=== PATIENT | male | born 1945 | race Caucasian/White ===

== ENCOUNTER → 2019-06-16 08:09 | Outpatient (CLI) | payer MEDICARE, OTHER, SELFPAY ==
--- NOTE | 2019-06-16 | DI.RAD.S_ITS ---
PROCEDURE: FL BARIUM SWALLOW INDICATIONS: Dysphagia, unspecified COMPARISON: [facility], , C-SPINE WITHOUT CONTRAST, 08/24/2017, 8:30. FINDINGS: Function: There is normal esophageal peristalsis. There is severe gastroesophageal reflux. There is normal transit of a calibrated barium tablet through the esophagus into the stomach. Morphology: Air-contrast images demonstrate normal mucosal morphology. No esophageal strictures, extrinsic mass effects, or diverticula. There is a small sliding hiatal herniaLimited images of the stomach demonstrate normal appearance. IMPRESSION: 1. Severe gastroesophageal reflux. 2. Small hiatal hernia. 3. The GE junction appears slightly irregular. An upper endoscopy is suggested for followup. Dictated by: Kori Gao M.D. on 06/16/2019 at 10:07 Approved by: Kori Gao M.D. on 06/16/2019 at 10:11
== END ==
PROVIDERS: PCP Nurse Practitioner Acute Care; Visit Provider Nurse Practitioner Acute Care
DX: R13.10 Dysphagia, unspecified (principal); K21.9 Gastro-esophageal reflux disease without esophagitis; K44.9 Diaphragmatic hernia without obstruction or gangrene
CPT/HCPCS: 74220

== ENCOUNTER → 2019-09-13 07:55 | Outpatient (CLI) | payer MEDICARE, OTHER, SELFPAY ==
[2019-09-13 09:12] LABS: BUN Creatinine Ratio 25.7 (6-22); Blood Urea Nitrogen 18 mg/dL (9-20); Carbon Dioxide 26 mmol/L (22-32); Chloride 107 mmol/L (98-107); Cholesterol 188 mg/dL (140-199); Estimated Glomerular Filt Rate > 60.0 mL/min (>60); Glucose 92 mg/dL (80-110); HDL Cholesterol 62 mg/dL (40-60); HEMOLYSIS < 15 (0-50); LDL Cholesterol Calculated 113 mg/dL (<100); Potassium 3.7 mmol/L (3.4-5.1); Sodium 140 mmol/L (137-145); Triglycerides 64 mg/dL (35-150)
== END ==
PROVIDERS: PCP Nurse Practitioner Acute Care; Referring Provider Internal Medicine; Visit Provider Internal Medicine
DX: Z13.220 Encounter for screening for lipoid disorders (principal); Z13.1 Encounter for screening for diabetes mellitus; E78.5 Hyperlipidemia, unspecified
CPT/HCPCS: 36415; 80048; 80061

== ENCOUNTER → 2019-09-15 10:37 | Outpatient (CLI) | payer MEDICARE, OTHER, SELFPAY ==
--- NOTE | 2019-09-19 18:56 | DI.NM.S_ITS ---
DATE OF SERVICE: 09/15/2019 PROCEDURE PERFORMED: Exercise treadmill stress and rest myocardial perfusion imaging with gating to assess ejection fraction and regional wall motion. ORDERING PROVIDER: Dr. Marjan Mi. INDICATIONS: The patient is a 74-year-old male with risk factors for coronary disease and an abnormal ECG. EXERCISE TREADMILL TESTING: The patient was able to exercise for 7 minutes 29 seconds on a standard Alfredito protocol, suggesting good exercise capacity with an NEVILLE of -13%. He had a normal heart rate response to exercise, achieving a maximum heart rate of 149 bpm (101% of his predicted maximum). He had a mild hypertensive blood pressure response with a resting blood pressure 128/82, increasing to a maximum of 208/110. He had no chest discomfort. His resting ECG is normal. With exercise, he developed isolated PVCs, at times fairly frequent, but without complex ventricular ectopy. The PVCs generally improved with progressive exercise. There were no significant ST-segment shifts to suggest ischemia. In recovery, PVCs returned in a trigeminal pattern, but there were no late repolarization abnormalities to suggest ischemia. At 6 minutes 30 seconds of exercise, at a heart rate of 133 bpm, 25.6 mCi of technetium-99m Myoview was injected and the patient was imaged 20 minutes later using a gated SPECT acquisition protocol. He returned four days later and was reinjected with 25.1 millicuries of technetium-99m Myoview and was imaged 30 minutes later, again using a gated SPECT acquisition protocol. FINDINGS: RAW DATA:: There is fair myocardial tracer uptake although with some evidence for diaphragmatic attenuation. Lung-heart ratio is borderline elevated at 0.42, which can be a sign of pulmonary congestion, but is nonspecific. TID ratio was normal at 0.90. QUANTITATED GATED SPECT:: Post-stress ejection fraction is 65% without any focal wall motion abnormality, and specifically the inferior wall has normal contractility. The resting ejection fraction is 68%. Resting end-diastolic volume is mildly increased at 157 mL. MYOCARDIAL PERFUSION IMAGING:: Post-stress supine images shows a fairly normal myocardial perfusion pattern with mildly reduced tracer activity in the proximal and mid inferior wall in a pattern consistent with diaphragmatic attenuation, supported by its complete resolution on the prone images, which reveal a homogeneous, normal perfusion pattern. The resting images show a similar perfusion pattern without any clear areas of improvement. IMPRESSION: 1. Normal myocardial perfusion study. 2. No evidence for myocardial ischemia or previous myocardial infarction. Mild diaphragmatic attenuation is suggested. 3. Normal left ventricular systolic function with mildly increased left ventricular volumes. A borderline elevated lung-heart ratio suggests the possibility of mild pulmonary congestion, but clinical correlation is recommended. 4. Good exercise capacity without angina or ECG evidence of ischemia, but with frequent PVCs that improve with exercise and a hypertensive blood pressure response to exercise. Pete Diane - ERIC/conchis/zhen doc#: [id number]/job#: [id number] dd: 09/19/2019 16:47:00 dt: 09/19/2019 18:30:00 DICTATING MD/COPIES TO: Jose Doss MD; Marjan Mi MD COPIES MNE: DAVID;
== END ==
PROVIDERS: PCP Nurse Practitioner Acute Care; Referring Provider Internal Medicine; Visit Provider Internal Medicine
DX: R94.31 Abnormal electrocardiogram [ECG] [EKG] (principal)
CPT/HCPCS: 78452; 93017; A9502

== ENCOUNTER → 2019-10-19 15:34 | Outpatient (CLI) | payer MEDICARE, OTHER, SELFPAY ==
[2019-10-19 16:53] LABS: Clostridium Difficile Tox PCR Negative for C. diff
== END ==
PROVIDERS: PCP Nurse Practitioner Acute Care; Referring Provider Internal Medicine; Visit Provider Internal Medicine
DX: R19.5 Other fecal abnormalities (principal)
CPT/HCPCS: 87493

== ENCOUNTER → 2019-11-15 08:01 | Outpatient (CLI) | payer MEDICARE, OTHER, SELFPAY ==
[2019-11-15 09:34] LABS: Add Manual Diff / Slide Review NO; Basophils Absolute Auto 100 /uL (0-100); Basophils Percent Auto 1.2 % (0-2); Eosinophils Absolute Auto 200 /uL (0-450); Hematocrit 44.5 % (41-53); Hemoglobin 15.2 g/dL (13.5-17.5); Lymphocytes Absolute Auto 1500 /uL (1100-4500); Lymphocytes Percent Auto 30.8 % (25-40); Mean Corpuscular HGB Conc 34.1 % (30-36); Mean Corpuscular Hemoglobin 31.8 PG (26-34); Monocytes Absolute Auto 600 /uL (0-900); Monocytes Percent Auto 12.5 % (3-14); Neutrophils Absolute Auto 2600 /uL (1500-7000); Neutrophils Percent Auto 51.5 % (50-75); Platelet Count 270 X10^3/uL (150-400); Red Blood Cell Count 4.78 X10^6/uL (4.5-5.9)
== END ==
PROVIDERS: PCP Internal Medicine; Referring Provider Internal Medicine; Visit Provider Internal Medicine
DX: G70.9 Myoneural disorder, unspecified (principal); R19.5 Other fecal abnormalities
CPT/HCPCS: 36415; 85025

== ENCOUNTER → 2020-08-13 08:43 | Outpatient (CLI) | payer MEDICARE, OTHER, SELFPAY ==
[2020-08-13 10:43] LABS: COVID19 -Nasal RAPID Negative (Negative)
== END ==
PROVIDERS: PCP Internal Medicine; Visit Provider Family Medicine Sleep Medicine
DX: Z20.822 Contact with and (suspected) exposure to COVID-19 (principal)
CPT/HCPCS: 87635; C9803

== ENCOUNTER → 2020-09-24 15:06 | Outpatient (CLI) | payer MEDICARE, OTHER, SELFPAY ==
[2020-09-24 17:46] LABS: COVID19 -Nasal RAPID Negative (Negative)
== END ==
PROVIDERS: PCP Internal Medicine; Visit Provider Physician Assistant
DX: Z01.812 Encounter for preprocedural laboratory examination (principal); Z20.822 Contact with and (suspected) exposure to COVID-19
CPT/HCPCS: 87635; C9803

== ENCOUNTER 2020-09-26 07:23 | Day surgery (SDC) | payer MEDICARE, OTHER, SELFPAY ==
[2020-09-26] VITALS (7 sets, daily range): BP systolic 109–158; BP diastolic 72–91; PULSE 61–82; RESP 10–14; TEMP 36.3–36.8; O2SAT 95–100; BMI 25.7
--- NOTE | 2020-09-26 | PATH_ITS ---
[facility] Accession Number: [id number] . 01 Material submitted: . colon - RANDOM COLON . 02 Diagnosis: Random Colon Biopsies: Colorectal mucosa with increased intraepithelial lymphocytosis. Please see comment. Negative for dysplasia or malignancy. MRV 09/28/2020 1049 Local . 02 Comment: These histologic findings could be consistent with lymphocytic colitis, in the appropriate clinical setting. There is no evidence of dysplasia or malignancy. . This case was also reviewed by Dr. Bustamante, who agrees with the interpretation. . 02 Electronically signed: . Rebeka Elias MD, Pathologist NPI- [id number] . 01 Gross description: . RANDOM COLON: Received in formalin are multiple fragment(s) of nuñez, soft tissue measuring 0.1 x 0.1 x 0.1 cm to 0.2 x 0.2 x 0.2 cm submitted entirely in 1 cassette(s) /DUKE 09/27/2020 1932 Local . 02 Pathologist provided ICD-10: Z12.11 . 02 CPT . 879339 Performed at: 01 [facility] [address] [facility] [place], [place], [place] [id number] MD Ty Lunsford MD Phone: [phone] Performed at: 02 [facility] [address] [place], [place] [id number] MD Ilda Johnson MD Phone: [phone]
[2020-09-26] MEDS: SODIUM CHLORIDE 0.9% 1,000 ML 100 ML IV (08:03)
--- NOTE | 2020-09-26 08:24 | PM.HP.1 ---
History of Present Illness History of Present Illness Date Patient Seen: 09/26/20 Chief complaint: SCREENING COLONOSCOPY W/POSS BX Narrative: Screening and diarrhea Patient History Family & Social History Family History Father Loud snoring Hypertension Heart disease Mother Hypertension Heart disease Dementia Family/Other Hypertension Social History: household members spouse Tobacco & Substance use: Smoking Status Never smoker alcohol intake current alcohol intake frequency 0-2 drinks per day Substance Use Type does not use Meds Home Medications and Allergies Home Medications Medication Instructions Recorded Confirmed Type pantoprazole 40 mg tablet,delayed 40 mg PO DAILY 06/13/20 09/26/20 History release prazosin 2 mg capsule 2 mg PO BEDTIME 06/13/20 09/26/20 History sertraline 100 mg tablet 100 mg PO DAILY 06/13/20 09/26/20 History Allergies Allergy/AdvReac Type Severity Reaction Status Date / Time Sulfa (Sulfonamide Allergy Intermediate ITCHING Verified 09/26/20 08:03 Antibiotics) Penicillins Allergy Unknown Verified 09/26/20 08:03 Exam Vital Signs (past 8 hours): - 09/26/20 07:48 Temperature 97.3 F L Pulse Rate 70 Respiratory Rate 12 Blood Pressure 158/91 H Pulse Oximetry 97 Oxygen Delivery Method Room Air Narrative Exam Narrative: Oropharynx free of lesions Chest clear to auscultation percussion Cardiac exam reveals no S3 or murmur Assessment & Plan Assessment & Plan narrative: History of adenomatous polyps need for follow-up colonoscopy. Risks, benefits, alternatives have been explained.
--- NOTE | 2020-09-26 08:29 | PM.OP.ENDO ---
Operative Date/Time/Diagnoses Date of procedure: 09/26/20 Pre-op diagnosis: See indication Procedure & Clinicians Study performed: Colonoscopy Same procedure as scheduled: Yes Indications: Follow-up history of adenomatous colon polyps. Incidental indication diarrhea Surgeon: Alec Gutierrez Procedure Notes Procedure in detail: After informed consent was obtained the patient was placed in the left lateral decubitus position. The video colonoscope was introduced the rectum slowly advanced to the cecum. On slow withdrawal mucosa was carefully examined. Preparation was good. The scope was removed. The patient tolerated procedure well. Blood loss none Complications none Sedation Total sedation time 12 minutes Versed 5 mg fentanyl 100 micro g IV titration Findings 1. Normal colonoscopy to cecum. Random biopsies taken to rule out microscopic colitis Will be in touch regarding biopsies. Otherwise Mr. Diane should have colonoscopy in 7 years.
[2020-09-26] MEDS: fentaNYL 250 MCG/5 ML INJ IV (08:32)
[2020-09-26] MEDS: MIDAZOLAM 5 MG/5 ML VIAL IV (08:38)
--- NOTE | 2020-09-26 08:59 | SUR.PHASEI ---
0851 Arrived to PACU awake/drowsy, denied pain, declined fluids and warm blanket. Went to sleep, resp even and regular.
--- NOTE | 2020-09-26 09:04 | SUR.PHASEI ---
Confirmed with that patient is to continue his home meds.
--- NOTE | 2020-09-26 09:14 | SUR.PHASEI ---
Pt awoke spontaneously to voices, HOB elevated and juice given. Denies pain
== END 2020-09-26 09:32 | disposition home or self-care (01) ==
PROVIDERS: PCP Internal Medicine; Referring Provider Internal Medicine; Visit Provider Internal Medicine Gastroenterology
PROC: 0DJD8ZZ Inspection of Lower Intestinal Tract, Via Natural or Artificial Opening Endoscopic (ICD-10-PCS; CPT 45378; principal; 2020-09-26 08:30)
DX: Z12.11 Encounter for screening for malignant neoplasm of colon (principal); Z86.010 Personal history of colon polyps; I10 Essential (primary) hypertension; R19.7 Diarrhea, unspecified
CPT/HCPCS: 45380; J2250; J3010

== ENCOUNTER → 2020-10-29 06:37 | Outpatient (CLI) | payer MEDICARE, OTHER, SELFPAY ==
--- NOTE | 2020-10-29 | DI.MRI.S_ITS ---
PROCEDURE: MR HEAD/BRAIN WO CON INDICATIONS: Cerebral infarction, unspecified TECHNIQUE: Non-contrast axial T1 spin echo, axial T2 fast spin echo, sagittal and axial FLAIR, coronal T2 fast spin echo, axial gradient echo, axial diffusion and ADC through the brain. COMPARISON: None. FINDINGS: Image quality: Excellent. CSF spaces: Ventricles appear symmetric in size and shape. Basal cisterns are patent. No extra-axial fluid collections. Brain: No intracranial bleeds or mass effects. There is cerebral volume loss for age. There are periventricular and deep white matter chronic small vessel ischemic changes. Brainstem appears normal. Diffusion-weighted images show no acute ischemic insults. No chronic ischemic insults. Normal intravascular flow voids are present. Skull and face: Calvarial bone marrow is normal in signal. Orbits are normal. Note is made of bilateral lens replacements. Sinuses: Minimal mucosal thickening is seen within the ethmoid air cells, without a significant paranasal sinus abnormality elsewhere. No abnormal fluid is seen within the mastoid air cells. IMPRESSION: No findings of acute or subacute infarction can be seen. No ivana findings of a significant remote infarction can be seen. Note is made of age-appropriate brain parenchymal volume loss and chronic small vessel ischemic changes. Dictated by: Jayro Suarez M.D. on 10/29/2020 at 8:36 Approved by: Jayro Suarez M.D. on 10/29/2020 at 8:38
== END ==
PROVIDERS: PCP Internal Medicine; Referring Provider Internal Medicine; Visit Provider Psychiatry & Neurology Neuromuscular Medicine
DX: I63.9 Cerebral infarction, unspecified (principal); R53.1 Weakness; R20.0 Anesthesia of skin
CPT/HCPCS: 70551

== ENCOUNTER 2021-05-16 17:11 | Emergency (ER) | payer MEDICARE, OTHER, SELFPAY ==
[2021-05-16 17:48] VITALS: BP 156/86; PULSE 58; RESP 18; TEMP 36.4; O2SAT 98; BMI 27.1
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
== END 2021-05-16 20:20 | disposition home or self-care (01) ==
PROVIDERS: Emergency Provider Nurse Practitioner Critical Care Medicine; PCP Internal Medicine; Referring Provider Internal Medicine
DX: G62.9 Polyneuropathy, unspecified (principal)
CPT/HCPCS: 99281

== ENCOUNTER → 2021-06-28 16:02 | Outpatient (CLI) | payer MEDICARE, OTHER, SELFPAY ==
--- NOTE | 2021-06-28 | DI.MRI.S_ITS ---
PROCEDURE: MR THORACIC SPINE WO CON INDICATIONS: Abnormal reflex; WEAKNESS TECHNIQUE: Noncontrast sagittal T1 spine echo and T2 fast spin echo, sagittal STIR, axial T1 and T2 fast spin echo through the thoracic spine. COMPARISON: [facility], MR, MR CERVICAL SPINE WO CON, 06/28/2021, 16:35. [facility], CR, SPINE THORACIC MIN 4VW, 12/03/2009, 15:14. FINDINGS: Image quality: There is susceptibility artifact seen within the midthoracic region on the left. Alignment and Curvature: There is mild levoconvex thoracolumbar scoliotic curvature seen. Bone Marrow: Marrow is of normal overall signal. No acute vertebral body compression fractures. Spinal Cord: Visualized spinal cord is normal in size and signal. Paraspinous Soft Tissues: No paravertebral masses. Note is made of an 18 mm right renal cyst. Miscellaneous: At T1-T2, there is mild loss of disc height seen. Bridging endplate osteophytes are seen. Reactive marrow endplate changes are seen which are hypointense on T1-weighted imaging and hyperintense on T2 weighted imaging, which is most consistent with edema (Modic type I changes). Moderate disc bulge is seen, with mild central canal narrowing and mild mass effect upon the ventral spinal cord. At least moderate bilateral neural foraminal narrowing can be seen. At T9-T10, there is a mild central disc protrusion, with mild central canal narrowing. There is at least moderate bilateral neural foraminal narrowing seen. At T10-T11, there is a mild to moderate central disc protrusion, with mild central canal narrowing. No significant mass effect can be seen upon the ventral spinal cord. There is at least moderate bilateral neural foraminal narrowing seen. At the T11-T12 level, there is moderate disc bulge, which is eccentric to the right. There is moderate right-sided and mild left-sided facet hypertrophy seen. There is moderate right-sided and no significant left-sided neural foraminal narrowing. Mild central canal narrowing is seen. No significant mass effect is seen upon the spinal cord. Milder degenerative changes are seen elsewhere. IMPRESSION: Multiple levels of thoracic spine degenerative change are seen, which are overall worst at T1-T2 and also inferiorly. Dictated by: Jayro Suarez M.D. on 06/28/2021 at 16:45 Approved by: Jayro Suarez M.D. on 06/28/2021 at 16:49
--- NOTE | 2021-06-28 | DI.MRI.S_ITS ---
PROCEDURE: MR CERVICAL SPINE WO CON INDICATIONS: Abnormal reflex; WEAKNESS TECHNIQUE: Noncontrast sagittal T1 spin echo and T2 fast spin echo, sagittal STIR, foraminal oblique sagittal T2 fast spin echo, and axial gradient echo or T2 fast spin echo through the cervical spine. COMPARISON: [facility], NM, NM PET CT FUSION WHOLE BODY, 08/10/2019, 18:05. [facility], MR, MR THORACIC SPINE WO CON, 06/28/2021, 16:35. [facility], MR, C-SPINE WITHOUT CONTRAST, 08/24/2017, 8:30. FINDINGS: Image quality: This examination is limited by involuntary motion artifact. Alignment and Curvature: There is mild grade 1 anterolisthesis seen at the C4-C5 level. Bone Marrow: Marrow demonstrates normal overall signal. Partial erosion is seen of the dens. Abnormal soft tissue can be seen adjacent to the dens. The appearance has progressed compared to 2018. Spinal Cord: Visualized spinal cord has normal size and signal. No cerebellar tonsillar herniation. Paraspinous Soft Tissues: No paravertebral masses. Prevertebral soft tissues are normal in thickness. C2-C3: The disc height is well-preserved. Loss of disc signal is seen at this level. Mild generalized disc bulge is seen. There is mild right-sided and moderate left-sided facet hypertrophy seen. Moderate bilateral neural foraminal narrowing is seen. Mild central canal narrowing is seen. When comparison is made with the prior images, these findings are similar. C3-C4: Mild loss of disc height is seen. Loss of disc signal is seen. At least moderate disc osteophyte complex is seen, which is eccentric to the left. There is prominent left-sided and moderate right-sided facet hypertrophy seen. There is severe left-sided and moderate to severe right-sided neural foraminal narrowing seen. Moderate central canal narrowing is seen. No significant change from the prior. C4-C5: Synn-xi-vnxbpliz loss of disc height and disc signal can be seen. At least moderate disc osteophyte complex is seen, which is eccentric to the left. There is at least moderate right-sided and moderate to prominent left-sided facet hypertrophy seen. Severe bilateral neural foraminal narrowing can be seen. Moderate to severe central canal narrowing is seen. There is associated mass effect upon the ventral spinal cord. No significant change from the prior. C5-C6: Mild loss of disc height is seen. Loss of disc signal is seen. Moderate generalized disc osteophyte complex is seen. There is sdjq-ci-mpqmdict right-sided and moderate to prominent left-sided facet hypertrophy seen. There is moderate to severe left-sided and at least moderate right-sided neural foraminal narrowing seen. Mild central canal narrowing is seen. No significant progression compared to the prior. C6-C7: Mild loss of disc height is seen. Loss of disc signal is seen. Moderate generalized disc osteophyte complex is seen. There is moderate right-sided and moderate to prominent left-sided facet hypertrophy seen. There is moderate to severe bilateral neural foraminal narrowing seen, left worse than right. Mild central canal narrowing is seen. Stable from the prior study. C7-T1: Nxbg-xj-jtodidza loss of disc height and disc signal can be seen. At least moderate disc osteophyte complex is seen. Moderate facet joint hypertrophy is seen. There is moderate to severe left-sided and moderate right-sided neural foraminal narrowing seen. Minimal central canal narrowing is seen. When comparison is made with the prior images, these findings are similar. IMPRESSION: Multiple levels of cervical spine degenerative change are seen, which are not significantly progressed compared to 2018. The degenerative changes are worst at the C4-C5. Dictated by: Jayro Suarez M.D. on 06/28/2021 at 16:37 Approved by: Jayro Suarez M.D. on 06/28/2021 at 16:43
== END ==
PROVIDERS: PCP Internal Medicine; Referring Provider Psychiatry & Neurology Neuromuscular Medicine; Visit Provider Psychiatry & Neurology Neuromuscular Medicine
DX: M47.812 Spondylosis without myelopathy or radiculopathy, cervical region (principal); M47.814 Spondylosis without myelopathy or radiculopathy, thoracic region; R29.2 Abnormal reflex; R53.1 Weakness
CPT/HCPCS: 72141; 72146

== ENCOUNTER 2021-07-06 15:51 | Emergency (ER) | payer MEDICARE, OTHER, SELFPAY ==
[2021-07-06 16:14] VITALS: BP 154/78; PULSE 67; RESP 18; TEMP 36.8; O2SAT 97; BMI 26.4
--- NOTE | 2021-07-06 16:19 | DI.US.S_ITS ---
PROCEDURE: US PERIPH VENOUS LOW EXTREM LT INDICATIONS: BRUISING, SWELLING AFTER MINOR INJURY TECHNIQUE: Real-time imaging, as well as color and pulse Doppler interrogation, were performed of the lower extremity deep veins from the inguinal ligament to the popliteal fossa. COMPARISON: None. FINDINGS: The common femoral, femoral and popliteal veins are normally compressible, and free of intraluminal thrombus. Color and pulse Doppler demonstrate normal phasic intraluminal flow. There is normal augmentation response to distal compression maneuver. There is a fluid collection in the popliteal fossa consistent with a Monk's cyst measuring approximately 3.2 x 0.7 x 3.6 cm. IMPRESSION: 1. No evidence of deep venous thrombosis in the left lower extremity. Dictated by: Ty Ring M.D. on 07/06/2021 at 16:21 Approved by: Ty Ring M.D. on 07/06/2021 at 16:22
--- NOTE | 2021-07-06 17:32 | ED_ITS ---
HPI - Extremity Injury (Lower) General Chief Complaint: Extremity Injury, Lower Stated Complaint: LT ANKLE SWOLLEN/BRUISE FROM BACK OF KNEE TO GROIN Time Seen by Provider: 07/06/21 17:06 Source: patient Mode of arrival: Ambulatory Limitations: no limitations History of Present Illness HPI Narrative: 76-year-old male nonsmoker without significant medical problems presents with his in the chief complaint of some pain and bruising of his left leg with possible injury. He had spoken with his primary care office and was sent here for evaluation of this injury and evaluation for DVT. Patient states that he w as bowling recently and went down in a rather low crouch and felt a pulling, tugging pain in his left buttock. In the aftermath he noticed bruising in his posterior thigh. He has yxln-pw-vijmgmbr pain but nothing significant, and is still able to go about his day. His symptoms are worse when he moves and improves with rest. He denies any numbness, tingling or weakness and he has had no systemic findings otherwise such as fever or chills. Additionally he suffered a superficial injury to his left lateral ankle and has some bruising which is subtle below the lateral malleolus. Related Data Home Medications Medication Instructions Recorded Confirmed pantoprazole 40 mg tablet,delayed 40 mg PO DAILY 06/13/20 09/26/20 release prazosin 2 mg capsule 2 mg PO BEDTIME 06/13/20 09/26/20 sertraline 100 mg tablet 100 mg PO DAILY 06/13/20 09/26/20 Allergies Allergy/AdvReac Type Severity Reaction Status Date / Time Sulfa (Sulfonamide Allergy Intermediate ITCHING Verified 07/06/21 16:14 Antibiotics) Penicillins Allergy Unknown Verified 07/06/21 16:14 Review of Systems Review of Systems Narrative: GENERAL: Denies chills, fatigue, malaise, fever, sweats. HEENT: Denies sinus pain, ear pain, sore throat, difficulty swallowing, dizziness. RESPIRATORY: Denies dyspnea, cough, wheezing, hemoptysis, sputum. CARDIOVASCULAR: Denies chest pain, palpitations, orthopnea, edema, GASTROINTESTINAL: Denies nausea, vomiting, abdominal pain, diarrhea, constipation, melena. : Denies dysuria, frequency, incontinence, hematuria, urinary retention. MUSCULOSKELETAL: See HPI SKIN: Denies rash, skin lesions, or other NEUROLOGIC: Denies weakness, headache, numbness, change in speech, confusion, seizures, incoordination. PSYCHIATRIC: No concerning psychosocial issues. 12 point review of systems is negative except for those stated above Patient History Family History Father Loud snoring Hypertension Heart disease Mother Hypertension Heart disease Dementia Family/Other Hypertension Social History household members: spouse Smoking Status: Never smoker alcohol intake: current Smoking Status: Never smoker alcohol intake frequency: 0-2 drinks per day Substance Use Type: does not use Exam Narrative Exam Narrative: GENERAL: [76] year old patient appears stated age. Well-developed patient, in mild distress. HEAD: Atraumatic. Normocephalic. EYES: Pupils equal round and reactive. Extraocular motions intact. No scleral icterus. No injection or drainage. ENT: Nose without bleeding, purulent drainage. Throat without erythema, tonsillar hypertrophy or exudate. Airway patent. NECK: Trachea midline. Non tender CARDIOVASCULAR: Regular rate and rhythm without murmurs, gallops, or rubs. RESPIRATORY: Clear to auscultation. Breath sounds equal bilaterally. No wheezes, rales, or rhonchi. GASTROINTESTINAL: Abdomen soft, non-tender, nondistended. EXTREMITIES: Patient has mild tenderness to palpation in the left gluteal fold without any significant induration or effusion. He has full strength with flexion at the knee, hamstrings appear intact. There is dark purple ecchymosis consistent with superficial hematoma, likely settling in a dependent fashion in the posterior thigh and also lateral foot. No bony tenderness. Otherwise very reassuring exam BACK: Nontender without deformity or crepitance. No flank tenderness. NEURO: AOx3. SKIN: No rash or erythema of visible areas Initial Vital Signs Initial Vital Signs: Vital Signs Temperature 98.3 F 07/06/21 16:14 Pulse Rate 67 07/06/21 16:14 Respiratory Rate 18 07/06/21 16:14 Blood Pressure 154/78 H 07/06/21 16:14 Pulse Oximetry 97 07/06/21 16:14 Course Orders Ordered: ED Orders 07/06/21 16:19 US perip venous low extrem lt Stat Vital Signs Vital signs: Vital Signs - 8 hr 07/06/21 16:14 Temperature 98.3 F Pulse Rate 67 Respiratory Rate 18 Blood Pressure 154/78 H Pulse Oximetry 97 MDM - Extremity Injury (Lower) Imaging Data US - DVT: Radiologist's Impression: [address] [id number] Ultrasound Report Signed Patient: Pete Diane MR#: [id number] : 1945 Acct:[id number] Age/Sex: 76 / M Date of Service: 07/06/21 Loc: ED Accession Number: [id number] ?? Procedure: US periph venous low extrem lt Ordering Provider: Susannah Rainey D.O. PROCEDURE:? US PERIPH VENOUS LOW EXTREM LT ? INDICATIONS:? BRUISING, SWELLING AFTER MINOR INJURY ? TECHNIQUE:? Real-time imaging, as well as color and pulse Doppler interrogation, were performed of the lower extremity deep veins from the inguinal ligament to the popliteal fossa.? ? COMPARISON:? None. ? FINDINGS:? The common femoral, femoral and popliteal veins are normally compressible, and free of intraluminal thrombus.? Color and pulse Doppler demonstrate normal phasic intraluminal flow.? There is normal augmentation response to distal compression maneuver. ? ? There is a fluid collection in the popliteal fossa consistent with a Monk's cyst measuring approximately 3.2 x 0.7 x 3.6 cm. ? IMPRESSION:? ? 1. No evidence of deep venous thrombosis in the left lower extremity. ? ? Dictated by: Ty Ring M.D. on 07/06/2021 at 16:21 ? ? Approved by: Ty Ring M.D. on 07/06/2021 at 16:22 ? Discharge Plan Departure Patient Disposition: Home Clinical Impression: Hematoma, Left hamstring injury, Monk's cyst of knee Instructions: DI for Monk Cyst, DI for Hematoma (Bruise) Activity Restrictions/Additional Instructions: *You have been diagnosed with [left thigh and ankle hematoma, likely from partial hamstring injury. Ultrasound was very reassuring and there is no evidence of clot, however as we discussed you do have a Monk cyst behind her left knee. *What to do: *Please continue to take your regular medications as directed. [ ] New medication prescriptions sent to your pharmacy: [ ] [ ] New medication written as a paper prescription [ x] No new medications given *Please follow up with your primary care provider in 2-3 days, call for an appointment. Let them know you were seen in the Emergency Department and that we ask that you be seen in follow up. We will electronically transmit a record of today's note if your PCP is in our system *If you do not have a primary care provider please contact the [facility] Resource line at [phone]. They will ask some questions about your medical history and help get you set up with a doctor in the community. *Return to Emergency Department if you should have any new, worsening or concerning symptoms, such as [fever greater than 101 F, shaking chills, worsening pain, persistent vomiting or other bothersome symptoms] Prescriptions: No Action sertraline 100 mg tablet 100 mg PO DAILY 0RF prazosin 2 mg capsule 2 mg PO BEDTIME 0RF pantoprazole 40 mg tablet,delayed release (DR/EC) 40 mg PO DAILY 0RF Referrals: Ronni Cote MD [Physician] - Marjan Mi MD [Primary Care Provider] -
== END 2021-07-06 18:09 | disposition home or self-care (01) ==
PROVIDERS: Emergency Provider Emergency Medicine; PCP Internal Medicine
DX: S70.12XA Contusion of left thigh, initial encounter (principal); M71.22 Synovial cyst of popliteal space [Baker], left knee; X58.XXXA Exposure to other specified factors, initial encounter; Y93.54 Activity, bowling
CPT/HCPCS: 93971; 99283; 99284

== ENCOUNTER → 2021-12-06 17:15 | Outpatient (CLI) | payer MEDICARE, OTHER, SELFPAY ==
[2021-12-06 17:31] LABS: Hemoglobin 14.6 g/dL (13.5-17.5); Mean Corpuscular HGB Conc 34.8 % (30-36); Mean Corpuscular Hemoglobin 32.1 PG (26-34); Mean Corpuscular Volume 92.3 fL (80-100); Platelet Count 229 X10^3/uL (150-400); Red Blood Cell Count 4.55 X10^6/uL (4.5-5.9); Red Cell Distribution Width 14.5 % (11.6-14.8); White Blood Cell Count 7.2 X10^3/uL (4.5-11.0)
[2021-12-06 17:44] LABS: Alanine Aminotransferase 30 IU/L (<50); Albumin 4.5 g/dL (3.5-5.0); Albumin Globulin Ratio 1.6 (1.0-2.8); Alkaline Phosphatase 131 U/L (38-126); Aspartate Aminotransferase 43 IU/L (17-59); BUN Creatinine Ratio 18.9 (6-22); Bilirubin Total 0.5 mg/dL (0.2-1.3); Blood Urea Nitrogen 18 mg/dL (9-20); Carbon Dioxide 29 mmol/L (22-32); Chloride 105 mmol/L (98-107); Cholesterol 155 mg/dL (140-199); Estimated Glomerular Filt Rate > 60 mL/min (>60); Globulin 2.9 g/dL (1.7-4.1); Glucose 99 mg/dL (80-110); HDL Cholesterol 70 mg/dL (40-60); HEMOLYSIS < 15 (0-50); LDL Cholesterol Calculated 68 mg/dL (<100); Potassium 4.2 mmol/L (3.4-5.1); Sodium 139 mmol/L (137-145); Total Protein 7.4 g/dL (6.3-8.2); Triglycerides 83 mg/dL (35-150)
[2021-12-06 18:24] LABS: Prostate Specific Antigen 1.92 ng/mL (0.10-4.00); TSH w/ Reflex to FT4 2.98 uIU/mL (0.47-4.68)
== END ==
PROVIDERS: PCP Internal Medicine; Referring Provider Internal Medicine; Visit Provider Internal Medicine
DX: E78.2 Mixed hyperlipidemia (principal); N40.0 Benign prostatic hyperplasia without lower urinary tract symptoms; I10 Essential (primary) hypertension
CPT/HCPCS: 36415; 80053; 80061; 84153; 84443; 85027

== ENCOUNTER → 2023-03-30 08:38 | Outpatient (CLI) | payer OTHER, SELFPAY ==
--- NOTE | 2023-03-30 | DI.MG.S_ITS ---
MALE BILATERAL DIGITAL DIAGNOSTIC MAMMOGRAM 3D/2D: 03/30/2023 CLINICAL: Right breast pain and swelling. Baseline exam. No prior exams were available for comparison. There is a benign irregular area of fibroglandular tissue in the right breast central to the nipple anterior depth. This correlates to the area of reported pain. No mass. There is a benign irregular area of fibroglandular tissue in the left breast central to the nipple in the retroareolar region. Left breast scar marker. No other significant masses or calcifications are seen in either breast. IMPRESSION: BENIGN There is no mammographic evidence of malignancy. Asymmetric right gynecomastia corresponding to the area of chronic right breast pain. Exam findings were conveyed to the patient. Patient is advised to monitor for significant change. Clinical follow-up is recommended. This exam was interpreted at Station ID: [id number]. NOTE: For mammograms, a report in lay terms will be sent to the patient. Approximately 15% of breast malignancies will not be visualized mammographically. In the management of a palpable breast mass, a negative mammogram must not discourage biopsy of a clinically suspicious lesion. Electronically Signed By: Noé Alba M.D. [facility] [place]/:03/30/2023 09:34:23 letter sent: Clinical Evaluation ACR BI-RADS Category 2: Benign Finding(s) 3342F
== END ==
PROVIDERS: PCP Internal Medicine; Referring Provider Nurse Practitioner Primary Care; Visit Provider Nurse Practitioner Primary Care
DX: N64.4 Mastodynia (principal); N62 Hypertrophy of breast
CPT/HCPCS: 77066; G0279

== ENCOUNTER → 2023-06-17 09:15 | Outpatient (CLI) | payer MEDICARE, OTHER, SELFPAY ==
[2023-06-17 10:36] LABS: Aspartate Aminotransferase 33 IU/L (17-59); Blood Urea Nitrogen 16 mg/dL (9-20); Calcium 10.1 mg/dL (8.4-10.2); Carbon Dioxide 28 mmol/L (22-32); Chloride 103 mmol/L (98-107); Cholesterol 157 mg/dL (140-199); Estimated Glomerular Filt Rate > 60 mL/min (>60); Glucose 95 mg/dL (80-110); HDL Cholesterol 64 mg/dL (40-60); HEMOLYSIS < 15 (0-50); LDL Cholesterol Calculated 83 mg/dL (<100); Potassium 4.4 mmol/L (3.4-5.1); Sodium 138 mmol/L (137-145); Triglycerides 49 mg/dL (35-150)
[2023-06-17 11:03] LABS: Prostate Specific Antigen 2.58 ng/mL (0.10-4.00)
== END ==
PROVIDERS: PCP Internal Medicine; Referring Provider Internal Medicine; Visit Provider Internal Medicine
DX: E78.2 Mixed hyperlipidemia (principal); N40.1 Benign prostatic hyperplasia with lower urinary tract symptoms; N13.8 Other obstructive and reflux uropathy
CPT/HCPCS: 36415; 80048; 80061; 84153; 84450

== ENCOUNTER → 2023-12-30 11:16 | Outpatient (CLI) | payer MEDICARE, OTHER, SELFPAY ==
--- NOTE | 2023-12-30 11:18 | DI.RAD.S_ITS ---
PROCEDURE: XR LUMBAR SPINE 6V W BENDING INDICATIONS: pelvic pain TECHNIQUE: 5 views of the lumbar spine acquired, including flexion and extension views. COMPARISON: None. FINDINGS: Bones: 5 nonrib-bearing vertebrae are present. Dextroscoliosis, mild. Anterolisthesis of L4 on L5 measuring 0.5 cm. Multilevel disc space height loss. Prominent osteophytes. Facet joint hypertrophy. No vertebral body compression fractures. No suspicious bony lesions. Soft tissues: Overlying bowel gas pattern is normal. No suspicious soft tissue calcifications. Flexion/extension: Decreased range of motion, with preserved normal alignment. IMPRESSION: Advanced degenerative changes in the lumbar spine. Mild scoliosis. Grade 1 anterolisthesis of L4 on L5. Decreased range of motion with flexion and extension. Dictated by: Noé Alba M.D. on 12/30/2023 at 17:44 Approved by: Noé Alba M.D. on 12/30/2023 at 17:46
--- NOTE | 2023-12-30 11:18 | DI.RAD.S_ITS ---
PROCEDURE: XR PELVIS 1-2V INDICATIONS: pelvic pain TECHNIQUE: 1 view(s) of the pelvis acquired. COMPARISON: None. FINDINGS: Bones: No fractures or dislocations. Moderate bilateral hip DJD. Degenerative changes at the lumbar spine. No suspicious bony lesions. Soft tissues: Visualized bowel gas pattern is normal. No suspicious soft tissue calcifications. IMPRESSION: Moderate bilateral hip DJD. Dictated by: Noé Alba M.D. on 12/30/2023 at 21:09 Approved by: Noé Alba M.D. on 12/30/2023 at 21:10
== END ==
PROVIDERS: PCP Internal Medicine; Referring Provider Internal Medicine; Visit Provider Internal Medicine
DX: M47.816 Spondylosis without myelopathy or radiculopathy, lumbar region (principal); M48.061 Spinal stenosis, lumbar region without neurogenic claudication; M43.16 Spondylolisthesis, lumbar region; M41.9 Scoliosis, unspecified; M16.0 Bilateral primary osteoarthritis of hip; M54.50 Low back pain, unspecified; G89.29 Other chronic pain
CPT/HCPCS: 72114; 72170

== ENCOUNTER → 2024-01-02 11:12 | Outpatient (CLI) | payer MEDICARE, OTHER, SELFPAY ==
--- NOTE | 2024-01-02 11:14 | DI.MRI.S_ITS ---
PROCEDURE: MR LUMBAR SPINE WO CON INDICATIONS: low back pain/neurogenic claudication TECHNIQUE: Noncontrast sagittal T1 spin echo and T2 fast echo, sagittal STIR, and T2 fast spin echo through the lumbar spine. In cases with scoliosis, additional coronal T2 fast spin echo may be performed. COMPARISON: None. FINDINGS: Image quality: Excellent. Alignment and Curvature: Dextrocurvature of the lumbar spine. Mild grade 1 retrolisthesis of L1 on L2 and L2 on L3. Mild anterolisthesis of L4 on L5 and L5-S1. Bone Marrow: Multilevel degenerative endplate changes, most pronounced at L2-L3 and L5-S1. Marrow is of normal overall signal. No acute vertebral body compression fractures. Spinal Cord: Conus medullaris terminates at the L1 level. Visualized cord demonstrates normal signal and size. Paraspinous Soft Tissues: No paravertebral masses. T12-L1: Disc desiccation and mild disc bulge. Facet arthropathy and thickening of ligamentum flavum. Mild central canal stenosis. No neural foraminal stenosis. L1-L2: Disc desiccation height loss. Posterior disc bulge. Left foraminal superimposed disc protrusion. Facet arthropathy and thickening of ligamentum flavum. Moderate central canal stenosis. Moderate left and mild right neural foraminal stenosis. L2-L3: Disc desiccation height loss. Diffuse disc bulge. Facet arthropathy and thickening of ligamentum flavum. Moderate central canal stenosis and narrowing of the lateral recesses. Moderate left and mild right neural foraminal stenosis. L3-L4: Disc desiccation height loss. Posterior disc bulge. Facet arthropathy and thickening of ligamentum flavum. Severe central canal stenosis. Moderate bilateral neural foraminal stenosis. L4-L5: Disc desiccation height loss. Posterior disc bulge. Facet arthropathy and thickening of ligamentum flavum. Severe central canal stenosis. Severe bilateral neural foraminal stenosis. L5-S1: Disc desiccation height loss. Diffuse disc bulge. Facet arthropathy and thickening of ligamentum flavum. No significant central canal stenosis. Severe bilateral neural foraminal stenosis. IMPRESSION: 1. Multilevel degenerative changes of the lumbar spine as described above. 2. There is severe central canal stenosis at L3-L4 and L4-5. 3. Severe bilateral neural foraminal stenosis at L4-5 and L5-S1. Dictated by: Anival Johnson M.D. on 01/04/2024 at 8:15 Approved by: Anival Johnson M.D. on 01/04/2024 at 8:20
== END ==
PROVIDERS: PCP Internal Medicine; Referring Provider Internal Medicine; Visit Provider Internal Medicine
DX: M48.061 Spinal stenosis, lumbar region without neurogenic claudication (principal); M48.07 Spinal stenosis, lumbosacral region; M47.816 Spondylosis without myelopathy or radiculopathy, lumbar region; M47.817 Spondylosis without myelopathy or radiculopathy, lumbosacral region; M54.50 Low back pain, unspecified; G89.29 Other chronic pain
CPT/HCPCS: 72148

== ENCOUNTER → 2024-06-22 10:45 | Outpatient (CLI) | payer MEDICARE, OTHER, SELFPAY ==
[2024-06-22 14:07] LABS: Hematocrit 40.8 % (41-53); Mean Corpuscular HGB Conc 34.3 % (30-36); Mean Corpuscular Hemoglobin 32.7 PG (26-34); Mean Corpuscular Volume 95.4 fL (80-100); Platelet Count 224 X10^3/uL (150-400); Red Blood Cell Count 4.27 X10^6/uL (4.5-5.9); Red Cell Distribution Width 14.4 % (11.6-14.8); White Blood Cell Count 6.2 X10^3/uL (4.5-11.0)
[2024-06-22 14:28] LABS: HEMOLYSIS < 15 (0-50)
[2024-06-22 14:54] LABS: Alanine Aminotransferase 26 IU/L (<50); Albumin 4.2 g/dL (3.5-5.0); Albumin Globulin Ratio 1.8 (1.0-2.8); Alkaline Phosphatase 103 U/L (38-126); Aspartate Aminotransferase 35 IU/L (17-59); Bilirubin Total 0.5 mg/dL (0.2-1.3); Blood Urea Nitrogen 17 mg/dL (9-20); Calcium 9.9 mg/dL (8.4-10.2); Carbon Dioxide 27 mmol/L (22-32); Chloride 106 mmol/L (98-107); Cholesterol 161 mg/dL (140-199); Estimated Glomerular Filt Rate > 60 mL/min (>60); Globulin 2.4 g/dL (1.7-4.1); Glucose 60 mg/dL (80-110); HDL Cholesterol 65 mg/dL (40-60); LDL Cholesterol Calculated 83 mg/dL (<100); Potassium 4.4 mmol/L (3.4-5.1); Sodium 138 mmol/L (137-145); Total Protein 6.6 g/dL (6.3-8.2); Triglycerides 64 mg/dL (35-150)
[2024-06-22 16:33] LABS: Prostate Specific Antigen 2.27 ng/mL (0.10-4.00)
== END ==
PROVIDERS: PCP Internal Medicine; Referring Provider Internal Medicine; Visit Provider Internal Medicine
DX: E78.2 Mixed hyperlipidemia (principal); N40.1 Benign prostatic hyperplasia with lower urinary tract symptoms; S06.9X9A Unspecified intracranial injury with loss of consciousness of unspecified duration, initial encounter; N13.8 Other obstructive and reflux uropathy; R25.1 Tremor, unspecified; M48.061 Spinal stenosis, lumbar region without neurogenic claudication; F41.1 Generalized anxiety disorder; F32.A Depression, unspecified; S06.9X0S Unspecified intracranial injury without loss of consciousness, sequela
CPT/HCPCS: 36415; 80053; 80061; 84153; 85027

== ENCOUNTER → 2025-03-13 11:13 | Outpatient (CLI) | payer MEDICARE, OTHER, SELFPAY ==
[2025-03-13 11:55] LABS: Hematocrit 43.2 % (41-53); Hemoglobin 14.9 g/dL (13.5-17.5); Mean Corpuscular HGB Conc 34.6 % (30-36); Mean Corpuscular Hemoglobin 32.4 PG (26-34); Mean Corpuscular Volume 93.8 fL (80-100); Platelet Count 214 X10^3/uL (150-400)
[2025-03-13 12:11] LABS: HEMOLYSIS < 15 (0-50)
[2025-03-13 12:16] LABS: Blood Urea Nitrogen 16 mg/dL (9-20); Calcium 9.9 mg/dL (8.4-10.2); Carbon Dioxide 28 mmol/L (22-32); Chloride 102 mmol/L (98-107); Cholesterol 157 mg/dL (140-199); Estimated Glomerular Filt Rate > 60 mL/min (>60); Glucose 95 mg/dL (70-99); HDL Cholesterol 65 mg/dL (40-60); Potassium 4.3 mmol/L (3.4-5.1); Sodium 136 mmol/L (137-145); Triglycerides 108 mg/dL (35-150)
[2025-03-13 12:49] LABS: TSH w/ Reflex to FT4 2.94 uIU/mL (0.47-4.68)
[2025-03-13 17:53] LABS: Prostate Specific Antigen 2.67 ng/mL (0.10-4.00)
== END ==
PROVIDERS: PCP Internal Medicine; Referring Provider Internal Medicine; Visit Provider Internal Medicine
DX: E78.2 Mixed hyperlipidemia (principal); N40.1 Benign prostatic hyperplasia with lower urinary tract symptoms; N13.8 Other obstructive and reflux uropathy; G47.31 Primary central sleep apnea
CPT/HCPCS: 36415; 80048; 80061; 84153; 84443; 84450; 85027